=== PATIENT | male | born 1990 | race Caucasian/White ===

== ENCOUNTER 2017-11-26 03:22 | Emergency (ER) | payer MEDICAID ==
[~2017-11-26] VITALS: Ht 180.3 cm; Wt 113.6 kg
[2017-11-26 03:29] VITALS: Ht 180.3 cm; Wt 113.6 kg
[2017-11-26 08:18] LABS: UA SPECIFIC GRAVITY >=1.030 (1.005-1.035); microscopic required? YES; urine erythrocyte TRACE (NEGATIVE)
[2017-11-26 09:23] VITALS: BP 146/99
== END 2017-11-26 09:23 | disposition home or self-care (01) ==
LOC: ED 03:22
PROVIDERS: Emergency Medicine
DX: J06.9 Acute upper respiratory infection, unspecified (principal); J45.909 Unspecified asthma, uncomplicated

== ENCOUNTER 2017-11-27 23:23 | Emergency (ER) | payer MEDICAID ==
[~2017-11-27] VITALS: Ht 180.3 cm; Wt 111.6 kg
[2017-11-27 23:42] VITALS: Ht 180.3 cm; Wt 111.6 kg
[2017-11-28 03:11] VITALS: BP 140/85
== END 2017-11-28 03:11 | disposition home or self-care (01) ==
LOC: ED 23:23
DX: K20.9 Esophagitis, unspecified (principal); K13.21 Leukoplakia of oral mucosa, including tongue; J45.909 Unspecified asthma, uncomplicated
CPT/HCPCS: Q0162

== ENCOUNTER 2019-08-12 23:12 | Emergency (ER) | payer OTHER ==
[~2019-08-12] VITALS: Ht 177.8 cm; Wt 116.2 kg
[2019-08-12 23:25] VITALS: Ht 177.8 cm; Wt 116.2 kg
[2019-08-13 01:09] VITALS: BP 124/87
== END 2019-08-13 01:09 | disposition home or self-care (01) ==
LOC: ED 23:12
DX: K29.20 Alcoholic gastritis without bleeding (principal)